=== PATIENT | male | born 1940 | race Caucasian/White ===

== ENCOUNTER 2019-03-04 00:07 | Inpatient (IN) | payer MEDICARE ==
[~2019-03-04] VITALS: Ht 175.3 cm; Wt 79.4 kg
[~2019-03-04 00:07] MED LIST: ATEN50 PO; ATOR40TA PO; B-1100 MG PO; CHOL10002 PO; CYAN1000 PO; Cipro500 MG PO; DICL75ER PO; DOC250 PO; DOCU100 PO; FINA5 PO; FISH1000 PO; FURO40 PO; HYDACE5 PO; LACT10SY PO; LAVAP17G PO; MIRT15 PO; MORP15ER PO; MORP30 PO; MULVITMIND PO; NORT75 PO; Norco 5-325 Ta1 EACH PO; OXYC5 PO; POLY17UD PO; PYRI100 PO; SODPHOSO PR; SULFAMETHOXAZOLE; TAMS.4ER PO; [UNRECOGNIZED DRUG - REMARK]
[2019-03-04 01:03] LABS: EOSINOPHILS ABSOLUTE AUTO 0.04 K/mm3 (0.00-0.68); EOSINOPHILS PERCENT AUTO 0 % (0-6); Hemoglobin 8.7 g/dL (13.5-17.5); Mean Platelet Volume 10.5 fL (9.1-12.4); Platelet Count 175 K/mm3 (150-400)
[2019-03-04 01:04] LABS: BASOPHILS ABSOLUTE AUTO 0.04 K/mm3 (0.00-0.23); BASOPHILS PERCENT AUTO 0 % (0-2); Hematocrit 30.4 % (37.0-53.0); IMMATURE GRAN PERCENT AUTO 0 % (0-1); LYMPHOCYTES ABSOLUTE AUTO 184.69 K/mm3 (0.84-5.20); LYMPHOCYTES PERCENT AUTO 98 % (21-46); MONOCYTES ABSOLUTE AUTO 0.37 K/mm3 (0.16-1.47); MONOCYTES PERCENT AUTO 0 % (4-13); Mean Corpuscular HGB 30.1 pg (26.0-34.0); Mean Corpuscular HGB Conc 28.6 g/dL (31.5-36.5); Mean Corpuscular Volume 105 fL (80-100); NEUTROPHILS ABSOLUTE AUTO 3.48 K/mm3 (1.96-9.15); NEUTROPHILS PERCENT AUTO 2 % (41-73); Red Blood Cell Count 2.89 M/mm3 (4.30-5.90)
[2019-03-04 01:06] LABS: White Blood Cell Count 188.82 K/mm3 (4.00-11.30)
[2019-03-04 01:23] LABS: Alanine Aminotransfer (ALT/SGP 92 U/L (12-78); Albumin, Blood 1.8 g/dL (3.4-5.0); Albumin/Globulin Ratio 0.4 (0.8-1.8); Alk Phos 157 U/L (50-136); Anion Gap 6 mmol/L (6-16); Aspartate Aminotrans (AST/SGOT 63 U/L (12-37); Bilirubin, Total 0.6 mg/dL (0.1-1.0); Blood Urea Nitrogen 32 mg/dL (8-24); Bun/Creatinine Ratio 34.7 (12.0-20.0); CO2, Blood 27 mmol/L (21-32); Calcium, Blood 7.1 mg/dL (8.5-10.1); Chloride, Blood 108 mmol/L (98-108); Creatinine, Blood 0.92 mg/dL (0.60-1.20); Glomerular Filtration Rate >60 (60-); Glucose, Blood 95 mg/dL (70-99); Potassium, Blood 5.4 mmol/L (3.5-5.5); Sodium, Blood 141 mmol/L (136-145); Total Protein, Blood 5.8 g/dL (6.4-8.2); Troponin I 0.456 ng/mL (0.000-0.040)
[2019-03-04] MEDS ORDERED: AMLO5 PO (04:12)
[2019-03-04] MEDS ORDERED: ONDA4 PO (05:36)
[2019-03-04] MEDS ORDERED: MAGOXI400 PO (05:36)
[2019-03-04] MEDS ORDERED: Zantac150 MG PO (05:37)
[2019-03-04] MEDS ORDERED: SALS750 PO (05:38)
[2019-03-04] MEDS ORDERED: Depo-Testos200 MG/ML IM (05:39)
--- NOTE | 2019-03-04 06:28 | NUR ---
SHIFT SUMMARY PATIENT ARRIVED TO ROOM VIA STRETCHER. PATIENT AWAKE AND TALKING WITH STAFF. PT'S FAMILY MEMBER AT BEDSIDE. PT COMPLAINS OF PAIN ALL OVER, ESPECIALLY IN HIS NECK. PATIENT IS VERY IRRITABLE AND CURSING TO STAFF. ANTIBIOTICS RUNNING. PATIENT ON 2L NC. PT FELL ASLEEP VERY QUICKLY AND SO DID NEPHEW. PT IS ON TELE. VITAL SIGNS STABLE
[2019-03-04 09:47] LABS: Hemoglobin 8.5 g/dL (13.5-17.5); Mean Platelet Volume 10.2 fL (9.1-12.4); Platelet Count 168 K/mm3 (150-400)
[2019-03-04 09:51] LABS: Hematocrit 31.1 % (37.0-53.0); Mean Corpuscular HGB 29.6 pg (26.0-34.0); Mean Corpuscular HGB Conc 27.3 g/dL (31.5-36.5); Mean Corpuscular Volume 108 fL (80-100); Red Blood Cell Count 2.87 M/mm3 (4.30-5.90)
[2019-03-04 10:07] LABS: Troponin I 0.375 ng/mL (0.000-0.040)
[2019-03-04 10:16] LABS: White Blood Cell Count 182.85 K/mm3 (4.00-11.30)
[2019-03-04 10:55] LABS: Alanine Aminotransfer (ALT/SGP 80 U/L (12-78); Albumin, Blood 1.6 g/dL (3.4-5.0); Albumin/Globulin Ratio 0.4 (0.8-1.8); Alk Phos 150 U/L (50-136); Anion Gap 10 mmol/L (6-16); Aspartate Aminotrans (AST/SGOT 52 U/L (12-37); Bilirubin, Total 0.8 mg/dL (0.1-1.0); Blood Urea Nitrogen 26 mg/dL (8-24); Bun/Creatinine Ratio 30.3 (12.0-20.0); CO2, Blood 23 mmol/L (21-32); Calcium, Blood 6.3 mg/dL (8.5-10.1); Chloride, Blood 105 mmol/L (98-108); Creatinine, Blood 0.86 mg/dL (0.60-1.20); Globulin, Blood 4.1 g/dL (2.2-4.0); Glomerular Filtration Rate >60 (60-); Glucose, Blood 133 mg/dL (70-99); Potassium, Blood 5.2 mmol/L (3.5-5.5); Sodium, Blood 138 mmol/L (136-145); Total Protein, Blood 5.7 g/dL (6.4-8.2)
[2019-03-04 11:03] LABS: Source, Urine Clean Catch
--- NOTE | 2019-03-04 11:28 | NUR ---
Echocardiogram completed.
[2019-03-04 11:32] LABS: Adenovirus Not Detected (NOT DETECT); Bordetella pertussis Not Detected (NOT DETECT); Chlamydophila pneumoniae Not Detected (NOT DETECT); Coronavirus 229E Not Detected (NOT DETECT); Coronavirus HKU1 Not Detected (NOT DETECT); Coronavirus NL63 Not Detected (NOT DETECT); Coronavirus OC43 Not Detected (NOT DETECT); Human Metapneumovirus Not Detected (NOT DETECT); Human Rhinovirus/Enterovirus Not Detected (NOT DETECT); Influenza A Not Detected (NOT DETECT); Influenza A/2009-H1 Not Detected (NOT DETECT); Influenza A/H1 Not Detected (NOT DETECT); Influenza A/H3 Not Detected (NOT DETECT); Influenza B Not Detected (NOT DETECT); Mycoplasma pneumoniae Not Detected (NOT DETECT); Parainfluenza Virus 1 Not Detected (NOT DETECT); Parainfluenza Virus 2 Not Detected (NOT DETECT); Parainfluenza Virus 3 Not Detected (NOT DETECT); Parainfluenza Virus 4 Not Detected (NOT DETECT); Respiratory Syncytial Virus Not Detected (NOT DETECT)
[2019-03-04 11:35] LABS: Bilirubin, Urine Neg (Neg); Blood, Urine Neg (Neg); Glucose Qualitative, Urine Neg (Neg); Ketones, Urine Neg (Neg); Leukocyte Esterase, Urine Neg (Neg); Nitrite, Urine Neg (Neg); Protein, Urine Neg (Neg); Specific Gravity, Urine 1.005 (1.003-1.022); Urobilinogen, Urine NORM (Normal)
[2019-03-04 13:21] LABS: Appearance, Urine Clear (Clear); Color, Urine Yellow (P-Yellow)
[2019-03-04 18:46] LABS: Troponin I 0.385 ng/mL (0.000-0.040)
--- NOTE | 2019-03-04 19:33 | NUR ---
SHIFT SUMMARY: NO ACUTE CHANGES TO REPORT THIS SHIFT. PT A&O; MILD CONFUSION-RESOLVING; COOPERATIVE WITH CARE. 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 IV ABX CONTINUING. REPORT GIVEN TO ONCOMING RN.
[2019-03-05 05:08] LABS: Test Name FLOW BLD
--- NOTE | 2019-03-05 07:35 | NUR ---
03/05/19 0600 VERY HARD OF HEARING. IRRITABLE WITH STAFF HE FEELS "URINE IS NOT EMPTIED QUICK ENOUGH". SECOND URINAL GIVEN TO HELP. VITALS STABLE. NEPHEW STAYED OVER NIGHT IN ROOM. FAMILY TO BRING IN HIS MED THAT PHARMACY DOES NOT CARRY. MEDICATED ONCE FOR PAIN AND SLEPT WELL AFTERWARDS. SOB WITH ANY EXERTION. O2 AT 3 LPM VIA N/C.
--- NOTE | 2019-03-05 11:33 | NUR ---
NOTIFIED DR. ELISE PT C/O NASAL DECONGESTION. DR. ELISE SAID TO ORDER SALINE NASAL SPRAY. NO OTHER NEW ORDERS AT THIS TIME.
--- NOTE | 2019-03-05 19:34 | NUR ---
SHIFT SUMMARY- PT AXO X3. [place]. PT C/O GENERALIZED PAIN THIS AFTERNOON. MEDS GIVEN PER EMAR. PT REPORTS NO BM SINCE MONDAY. MEDS GIVEN PER EMAR. PT HAD 2 LARGE SOFT BM TODAY. PT DENIES N/V. PT REPORTS SOB. DYSPNEA UPON EXERTION. 97% ON 3L O2 NC. 1 ASSIST STAND PIVOT TRANSFER TO BSC/CHAIR. NO OTHER SIGNIFICANT CHANGES THIS SHIFT.
[2019-03-06 06:09] LABS: IMMUNOGLOBULIN A, QN, SERUM 74 mg/dL (61-437); IMMUNOGLOBULIN G, QN, SERUM 1547 mg/dL (700-1600); IMMUNOGLOBULIN M, QN, SERUM 49 mg/dL (15-143)
[2019-03-06 06:49] LABS: EOSINOPHILS ABSOLUTE AUTO 0.08 K/mm3 (0.00-0.68); EOSINOPHILS PERCENT AUTO 0 % (0-6); Hemoglobin 7.5 g/dL (13.5-17.5); Mean Platelet Volume 10.5 fL (9.1-12.4); NRBC ABSOLUTE 0.02 K/mm3 (0.00-0.02); Platelet Count 189 K/mm3 (150-400)
[2019-03-06 06:51] LABS: Hematocrit 27.5 % (37.0-53.0); Mean Corpuscular HGB 29.9 pg (26.0-34.0); Mean Corpuscular HGB Conc 27.3 g/dL (31.5-36.5); Mean Corpuscular Volume 110 fL (80-100); Red Blood Cell Count 2.51 M/mm3 (4.30-5.90)
[2019-03-06 06:52] LABS: BASOPHILS ABSOLUTE AUTO 0.04 K/mm3 (0.00-0.23); BASOPHILS PERCENT AUTO 0 % (0-2); IMMATURE GRAN PERCENT AUTO 0 % (0-1); LYMPHOCYTES ABSOLUTE AUTO 163.58 K/mm3 (0.84-5.20); LYMPHOCYTES PERCENT AUTO 98 % (21-46); MONOCYTES ABSOLUTE AUTO 0.33 K/mm3 (0.16-1.47); MONOCYTES PERCENT AUTO 0 % (4-13); NEUTROPHILS ABSOLUTE AUTO 2.39 K/mm3 (1.96-9.15); NEUTROPHILS PERCENT AUTO 2 % (41-73)
[2019-03-06 06:58] LABS: White Blood Cell Count 166.52 K/mm3 (4.00-11.30)
[2019-03-06 07:10] LABS: Anion Gap 7 mmol/L (6-16); Blood Urea Nitrogen 12 mg/dL (8-24); Bun/Creatinine Ratio 11.9 (12.0-20.0); CO2, Blood 23 mmol/L (21-32); Calcium, Blood 6.7 mg/dL (8.5-10.1); Chloride, Blood 108 mmol/L (98-108); Creatinine, Blood 1.01 mg/dL (0.60-1.20); Glomerular Filtration Rate >60 (60-); Glucose, Blood 88 mg/dL (70-99); Potassium, Blood 4.7 mmol/L (3.5-5.5); Sodium, Blood 138 mmol/L (136-145)
--- NOTE | 2019-03-06 08:03 | NUR ---
03/06/19 0600 VITALS STABLE. MEDICATED SEVERAL TIMES FOR LOWER EXTREMITY DISCOMFORT. UNEVENTFUL NIGHT.
--- NOTE | 2019-03-06 14:15 | NUR ---
Initial Visit: Palliative Care Consult for Advanced Care Planning and Symptom Management. Pt is A&O and reports a tolerable 3/10 pain in his feet. He reports current regimen is managing his pain. He denies anxiety and appears moderately dyspneic as our conversation progresses. He reports his dyspnea worsen when speaking for too long. Engaged in therapeutic conversation regarding Advanced Care Planning. Pt reports living at home and his newphew lives with him. His daughter lives in the same neighborhood. Pt is of [employer] and reports his last year. Pt is a and this RN thanked him for his services. Pt reports his nephew is supportive of his care needs. Pt also reports having a caregiver come to his home for 2 to 3 hours 3 to 4 days a week. Pt's daughter is also supportive of care needs. 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 Suggested to Pt to write down questions for oncologist to address during his visit. Also suggested for Pt to make family and caregivers aware of possible need for extra support when going through treatment. Pt expresses appreciation of visit and this RN ended visit due to increased dyspnea. He reports the longer he talks the more dyspneic he becomes. Spoke with Pt's bedside nurse Rica and she reports no concerns at this time. Palliative Care will remain available
--- NOTE | 2019-03-06 14:42 | NUR ---
Late Entry from Initial Visit. During visit discussion was made regarding high risk readmission program. Pt expresses interest in program.
--- NOTE | 2019-03-06 17:34 | NUR ---
SHIFT SUMMARY PT UP TO COMMODE THIS AFTERNOON WITH 1 PERSON ASSIST. WAS IN PAIN THIS MORNING AND GOT HOME PAIN MEDS ORDERED AND STATES HIS PAIN IS MORE MANAGEABLE THIS AFTERNOON. FAMILY AT BEDSIDE DURING MIDDLE OF DAY. WILL REPORT TO ONCOMING SHIFT.
--- NOTE | 2019-03-07 06:01 | NUR ---
SHIFT SUMMARY PATIENT IS ALERT AND ORIENTED. USES CALL LIGHT APPROPRIATELY. USES URINAL. PATIENT DID HAVE SOME PAIN AND WAS MEDICATED ORDERED. PT SLEPT WELL THROUGHOUT THE NIGHT. VITALS STABLE. NO NEW CHANGES.
--- NOTE | 2019-03-07 10:00 | NUR ---
PT REPORTED AT SHIFT CHANGE ABOUT L FA HURTING IN A STABBING FASHION AND IT SUDDENLY GOT WORSE THIS MORNING. SITE WITH SLIGHT SWELLINNG BUT NO REDNESS OR WARMTH NOTED AT SITE. MEDICATED AND ICE APPLIED. AT THIS TIME PT ABLE TO USE L ARM BUT FAVORS IT. STATES IT FEELS A LITTLE BETTER THAN EARLIER THIS MORNIING.
[2019-03-07] MEDS ORDERED: CVS DISPOSABLE399 ML PR (12:20)
[2019-03-07] MEDS ORDERED: CHLO2 PO (12:35)
[2019-03-07 13:13] LABS: Result SEE LABOUT RESULTS
--- NOTE | 2019-03-07 13:30 | NUR ---
DISCHARGE INSTRUCTIONS COMPLETED AND DISCUSSED WITH PT EXPRESSING UNDERSTANDING. NEPHEW AT BEDSIDE WELL LISTENING TO INSTRUCTIONS. [facility] TO [facility]IA W/C.
== END 2019-03-07 13:25 | disposition home or self-care (01) | DRG 840 ==
LOC: ER 00:07 → MEDS 04:47 → ENPENDDIS 03-07 11:55 → MEDS 03-07 13:25
PROVIDERS: Emergency Medicine; Hospitalist; Internal Medicine Hematology & Oncology; ADMIT Internal Medicine
DX: C91.90 Lymphoid leukemia, unspecified not having achieved remission (principal); J96.01 Acute respiratory failure with hypoxia; I21.A1 Myocardial infarction type 2; R65.10 Systemic inflammatory response syndrome (SIRS) of non-infectious origin without acute organ dysfunction; E86.0 Dehydration; Z99.81 Dependence on supplemental oxygen; K21.9 Gastro-esophageal reflux disease without esophagitis; D69.6 Thrombocytopenia, unspecified; Z87.01 Personal history of pneumonia (recurrent); Z66 Do not resuscitate; D63.0 Anemia in neoplastic disease; I10 Essential (primary) hypertension; Z51.5 Encounter for palliative care; K59.00 Constipation, unspecified; G89.3 Neoplasm related pain (acute) (chronic)
CPT/HCPCS: 36415; 71260; 80048; 80053; 81003; 82550; 82784; 83605; 83880; 84145; 84484; 85025; 85027; 87486; 87581; 87633; 87798; 88184; 88185; 93005; 93010; 93306; 94640; 94760; 94770; 96365-59; 99285-25; J1650; J1956; J2543; J3010; J7030; J7050; Q9967

== ENCOUNTER → 2019-04-01 | Outpatient (CLI) | payer MEDICARE ==
[~2019-04-01] MED LIST changes: +AMLO5 PO; +CEFP200 PO; +CHLO2 PO; +CVS DISPOSABLE399 ML PR; +Depo-Testos200 MG/ML IM; +MAGOXI400 PO; +ONDA4 PO; +POTA20PAC PO; +SALS750 PO; +Zantac150 MG PO
[2019-04-05 11:08] LABS: CELLS ANALYZED Comment: (.); CELLS COUNTED Comment: (.); DIRECTOR REVIEW: Comment: (.); FISH RESULT Comment: (.); INTERPRETATION Comment: (.); SPECIMEN TYPE Comment: (.)
== END | disposition home or self-care (01) ==
LOC: LAB SHORT 09:54 → LAB 09:54
PROVIDERS: Internal Medicine Hematology & Oncology
DX: C91.10 Chronic lymphocytic leukemia of B-cell type not having achieved remission (principal)
CPT/HCPCS: 81263; 82232; 88184; 88185; 88271; 88275

== ENCOUNTER 2019-06-13 17:09 | Emergency (ER) | payer OTHER, MEDICARE ==
[~2019-06-13] VITALS: Ht 177.8 cm; Wt 77.1 kg
[~2019-06-13 17:09] MED LIST changes: -CEFP200 PO; -POTA20PAC PO
[2019-06-13 17:25] LABS: BASOPHILS ABSOLUTE AUTO 0.01 K/mm3 (0.00-0.23); BASOPHILS PERCENT AUTO 0 % (0-2); EOSINOPHILS ABSOLUTE AUTO 0.01 K/mm3 (0.00-0.68); EOSINOPHILS PERCENT AUTO 0 % (0-6); Hematocrit 35.9 % (37.0-53.0); Hemoglobin 11.9 g/dL (13.5-17.5); IMMATURE GRAN ABSOLUTE AUTO 0.05 K/mm3 (0.00-0.10); IMMATURE GRAN PERCENT AUTO 2 % (0-1); LYMPHOCYTES ABSOLUTE AUTO 0.64 K/mm3 (0.84-5.20); LYMPHOCYTES PERCENT AUTO 19 % (21-46); MONOCYTES ABSOLUTE AUTO 0.33 K/mm3 (0.16-1.47); MONOCYTES PERCENT AUTO 10 % (4-13); Mean Corpuscular HGB 32.9 pg (26.0-34.0); Mean Corpuscular HGB Conc 33.1 g/dL (31.5-36.5); Mean Corpuscular Volume 99 fL (80-100); Mean Platelet Volume 9.7 fL (9.1-12.4); NEUTROPHILS ABSOLUTE AUTO 2.29 K/mm3 (1.96-9.15); NEUTROPHILS PERCENT AUTO 69 % (41-73); Platelet Count 123 K/mm3 (150-400); RDW Coefficient Variation 14.6 % (11.7-14.2); RDW Standard Deviation 53.6 fL (35.1-46.3); Red Blood Cell Count 3.62 M/mm3 (4.30-5.90); White Blood Cell Count 3.33 K/mm3 (4.00-11.30)
[2019-06-13 17:39] LABS: International Normalized Ratio 0.99; Prothrombin Time Results 10.5 Sec (9.7-11.5)
[2019-06-13 17:56] LABS: Ethanol (Alcohol), Blood, Med 242 mg/dL
[2019-06-13 18:00] LABS: Alanine Aminotransfer (ALT/SGP 17 U/L (12-78); Albumin, Blood 3.3 g/dL (3.4-5.0); Albumin/Globulin Ratio 1.1 (0.8-1.8); Alk Phos 70 U/L (50-136); Anion Gap 8 mmol/L (6-16); Aspartate Aminotrans (AST/SGOT 19 U/L (12-37); Bilirubin, Total 0.4 mg/dL (0.1-1.0); Blood Urea Nitrogen 10 mg/dL (8-24); Bun/Creatinine Ratio 10.1 (12.0-20.0); CO2, Blood 26 mmol/L (21-32); Chloride, Blood 109 mmol/L (98-108); Creatinine, Blood 0.99 mg/dL (0.60-1.20); Globulin, Blood 2.9 g/dL (2.2-4.0); Glomerular Filtration Rate >60 (60-); Glucose, Blood 104 mg/dL (70-99); Potassium, Blood 2.9 mmol/L (3.5-5.5); Sodium, Blood 143 mmol/L (136-145); Total Protein, Blood 6.2 g/dL (6.4-8.2)
[2019-06-13] MEDS ORDERED: POTA20PAC PO (18:41)
[2019-06-13 18:42] LABS: U Amphetamine Screen Not Detected; U Barbituate Screen Not Detected; U Benzodiazapine Screen Not Detected; U Buprenorphine Screen Not Detected; U Cannabinoids Screen Not Detected; U Cocaine Screen Not Detected; U Methadone Screen Not Detected; U Methamphetamine Screen Not Detected; U Opiates Screen Not Detected; U Oxycodone Screen Not Detected; U Phencyclidine Screen Not Detected; U Propoxyphene Screen Not Detected
== END 2019-06-13 19:01 | disposition home or self-care (01) ==
LOC: ER 17:09
PROVIDERS: Emergency Medicine
DX: F10.129 Alcohol abuse with intoxication, unspecified (principal); R41.82 Altered mental status, unspecified; Y90.8 Blood alcohol level of 240 mg/100 ml or more; E87.6 Hypokalemia; D69.6 Thrombocytopenia, unspecified; K21.9 Gastro-esophageal reflux disease without esophagitis; C91.10 Chronic lymphocytic leukemia of B-cell type not having achieved remission; Z87.01 Personal history of pneumonia (recurrent); Z79.899 Other long term (current) drug therapy
CPT/HCPCS: 70450; 71046; 80053; 82947; 85025; 85610; 93005; 93010; 96374; 99285-25; G0480; J2310

== ENCOUNTER 2019-06-16 08:37 | Emergency (ER) | payer OTHER, MEDICARE ==
[~2019-06-16] VITALS: Ht 175.3 cm; Wt 79.4 kg
[~2019-06-16 08:37] MED LIST changes: +POTA20PAC PO
[2019-06-16 09:14] LABS: Source, Urine Catheter
[2019-06-16 09:17] LABS: Appearance, Urine Clear (Clear); Bilirubin, Urine Neg (Neg); Blood, Urine 5+ (Neg); Color, Urine Yellow (P-Yellow); Glucose Qualitative, Urine Neg (Neg); Ketones, Urine Neg (Neg); Leukocyte Esterase, Urine 3+ (Neg); Nitrite, Urine Neg (Neg); Protein, Urine Neg (Neg); Specific Gravity, Urine 1.005 (1.003-1.022); Urobilinogen, Urine NORM (Normal); pH, Urine 6.5 (5.0-8.0)
[2019-06-16 09:30] LABS: White Blood Cells, Urine 50-100 /hpf (0-5)
[2019-06-16 09:31] LABS: Bacteria Many /hpf; Squamous Epithelial Cells Rare /hpf (Few)
[2019-06-16] MEDS ORDERED: CEFP200 PO (10:07)
== END 2019-06-16 10:38 | disposition home or self-care (01) ==
LOC: ER 08:37
PROVIDERS: Physician Assistant
DX: N39.0 Urinary tract infection, site not specified (principal); Z79.899 Other long term (current) drug therapy
CPT/HCPCS: 51702; 51798; 81001; 87077; 87086; 87186; 99283-25; A9270-GY

== ENCOUNTER 2019-06-30 22:40 | Emergency (ER) | payer MEDICARE ==
[~2019-06-30] VITALS: Ht 175.3 cm; Wt 82.5 kg
[~2019-06-30 22:40] MED LIST changes: +CEFP200 PO
== END 2019-07-01 00:39 | disposition home or self-care (01) ==
LOC: ER 22:40
DX: T83.031A Leakage of indwelling urethral catheter, initial encounter (principal); M19.90 Unspecified osteoarthritis, unspecified site; Z79.899 Other long term (current) drug therapy; Z79.1 Long term (current) use of non-steroidal anti-inflammatories (NSAID)
CPT/HCPCS: 99282

== ENCOUNTER 2019-12-04 07:03 | Emergency (ER) | payer OTHER, MEDICARE ==
[~2019-12-04] VITALS: Ht 175.3 cm; Wt 82.5 kg
[2019-12-04 07:46] LABS: Source, Urine Clean Catch
[2019-12-04 07:53] LABS: Bilirubin, Urine Neg (Neg); Blood, Urine 2+ (Neg); Glucose Qualitative, Urine Neg (Neg); Ketones, Urine Neg (Neg); Leukocyte Esterase, Urine 2+ (Neg); Nitrite, Urine Neg (Neg); Protein, Urine Neg (Neg); Urobilinogen, Urine NORM (Normal); pH, Urine 6.5 (5.0-8.0)
[2019-12-04 08:00] LABS: Appearance, Urine Hazy (Clear); Color, Urine Yellow (P-Yellow); White Blood Cells, Urine 25-50 /hpf (0-5)
[2019-12-04 08:01] LABS: Bacteria Many /hpf; Squamous Epithelial Cells Rare /hpf (Few); Transitional Epithelial Cells Rare /hpf (0-Rare)
[2019-12-04] MEDS ORDERED: Bactrim Ds Tab1 EACH PO (09:01)
[2019-12-04] MEDS ORDERED: CEFP200 PO (09:01)
== END 2019-12-04 09:16 | disposition home or self-care (01) ==
LOC: ER 07:03
PROVIDERS: Emergency Medicine
DX: L03.314 Cellulitis of groin (principal); N30.00 Acute cystitis without hematuria; Z79.899 Other long term (current) drug therapy
CPT/HCPCS: 81001; 87077; 87086; 87186; 99283; A9270-GY

== ENCOUNTER 2020-01-25 14:31 | Emergency (ER) | payer OTHER, MEDICARE ==
[~2020-01-25] VITALS: Ht 175.3 cm; Wt 82.5 kg
[~2020-01-25 14:31] MED LIST changes: +Bactrim Ds Tab1 EACH PO
[2020-01-25 16:16] LABS: Source, Urine Voided
[2020-01-25 16:20] LABS: Bilirubin, Urine Neg (Neg); Blood, Urine 3+ (Neg); Glucose Qualitative, Urine Neg (Neg); Ketones, Urine Neg (Neg); Leukocyte Esterase, Urine 2+ (Neg); Nitrite, Urine Neg (Neg); Protein, Urine Neg (Neg); Specific Gravity, Urine 1.015 (1.003-1.022); Urobilinogen, Urine NORM (Normal); pH, Urine 6.5 (5.0-8.0)
[2020-01-25 16:39] LABS: Appearance, Urine Clear (Clear); Color, Urine Yellow (P-Yellow)
[2020-01-25 16:41] LABS: Bacteria Rare /hpf; Calcium Oxalate Crystals Rare /hpf; Squamous Epithelial Cells Few /hpf (Few)
[2020-01-25] MEDS ORDERED: CEFP200 PO (17:42)
== END 2020-01-25 17:58 | disposition home or self-care (01) ==
LOC: ER 14:31
PROVIDERS: Emergency Medicine
DX: N48.21 Abscess of corpus cavernosum and penis (principal); N39.0 Urinary tract infection, site not specified; K21.9 Gastro-esophageal reflux disease without esophagitis; Z79.899 Other long term (current) drug therapy
CPT/HCPCS: 10160; 76857; 81001; 87070; 87075; 87086; 87205; 99283-25; A9270-GY

== ENCOUNTER 2025-01-05 20:33 | Emergency (ER) | payer MEDICARE ==
[~2025-01-05] VITALS: Ht 175.3 cm; Wt 86.2 kg
[~2025-01-05 20:33] MED LIST changes: +AZIT250 PO; +CALCIUM CARBON500 M1 PO; +CEPH500 PO; +VISBIOME 112.51 EACH PO; +XARELTO15 MG PO
[2025-01-05 21:28] LABS: Hematocrit 32.4 % (37.0-53.0); Hemoglobin 9.9 g/dL (13.5-17.5); Mean Corpuscular HGB 30.4 pg (26.0-34.0); Mean Corpuscular HGB Conc 30.6 g/dL (31.5-36.5); Mean Corpuscular Volume 99 fL (80-100); Mean Platelet Volume 11.5 fL (9.1-12.4); Platelet Count 166 K/mm3 (150-400); RDW Coefficient Variation 18.4 % (11.7-14.2); RDW Standard Deviation 66.9 fL (35.1-46.3); Red Blood Cell Count 3.26 M/mm3 (4.30-5.90); White Blood Cell Count 26.27 K/mm3 (4.00-11.30)
[2025-01-05 21:50] LABS: Albumin, Blood 3.3 g/dL (3.4-5.0); Bilirubin, Total 0.4 mg/dL (0.1-1.0); Bun/Creatinine Ratio 10.6 (12.0-20.0); Creatinine, Blood 1.04 mg/dL (0.60-1.20); Globulin, Blood 3.2 g/dL (2.2-4.0); Potassium, Blood 4.1 mmol/L (3.5-5.5); Total Protein, Blood 6.5 g/dL (6.4-8.2)
[2025-01-05] MEDS ORDERED: FentaNYL Citrate 50 MCG/ML 2 ML Injection IV ONE (21:55)
[2025-01-05 22:12] LABS: BASOPHILS PERCENT MAN 0 % (0-2); EOSINOPHILS ABSOLUTE MAN 0.26 K/mm3 (0.00-0.68); EOSINOPHILS PERCENT MAN 1 % (0-6); LYMPHOCYTES PERCENT MAN 91 % (21-46); MONOCYTES PERCENT MAN 0 % (4-13); SEG NEUTROPHILS PERCENT MAN 8 % (41-73); TOTAL CELLS COUNTED 100
[2025-01-05 22:59] LABS: International Normalized Ratio 0.99; Prothrombin Time Results 10.6 Sec (9.7-11.5)
[2025-01-05 23:01] LABS: CORONAVIRUS COVID-19 AG Negative (NEGATIVE); INFLUENZA A AG Negative (NEGATIVE); INFLUENZA B AG Negative (NEGATIVE)
[2025-01-06] VITALS: BP 134/70
[2025-01-06] MEDS ORDERED: FentaNYL Citrate 50 MCG/ML 2 ML Injection IV ONE (00:20)
== END 2025-01-06 00:55 | disposition other institution (70) ==
LOC: ER 20:33
PROVIDERS: Student in an Organized Health Care Education/Training Program
DX: Z90.79 Acquired absence of other genital organ(s) (principal); Z59.89 Other problems related to housing and economic circumstances; J44.9 Chronic obstructive pulmonary disease, unspecified; K21.9 Gastro-esophageal reflux disease without esophagitis; I10 Essential (primary) hypertension; Z79.891 Long term (current) use of opiate analgesic; Z79.83 Long term (current) use of bisphosphonates; Z79.899 Other long term (current) drug therapy; Z79.890 Hormone replacement therapy; Z79.2 Long term (current) use of antibiotics
CPT/HCPCS: 80053; 85025; 85610; 85730; 86850; 86900; 86901; 87428-QW; 96374; 96376; 99284-25; J3010

== ENCOUNTER 2025-02-11 17:39 | Emergency (ER) | payer MEDICARE ==
[~2025-02-11] VITALS: Ht 175.3 cm; Wt 87.1 kg
[2025-02-11 18:09] LABS: Hematocrit 27.2 % (37.0-53.0); Hemoglobin 7.9 g/dL (13.5-17.5); Mean Corpuscular HGB 27.1 pg (26.0-34.0); Mean Corpuscular Volume 93 fL (80-100); Mean Platelet Volume 11.3 fL (9.1-12.4); Platelet Count 181 K/mm3 (150-400); RDW Coefficient Variation 17.7 % (11.7-14.2); RDW Standard Deviation 60.9 fL (35.1-46.3); Red Blood Cell Count 2.92 M/mm3 (4.30-5.90); White Blood Cell Count 12.95 K/mm3 (4.00-11.30)
[2025-02-11] MEDS ORDERED: ASCORBIC ACID500 M1 PO (18:30)
[2025-02-11] MEDS ORDERED: B-12 COMPL1000 MCG/2 IM (18:31)
[2025-02-11 18:32] LABS: Albumin, Blood 3.6 g/dL (3.4-5.0); Albumin/Globulin Ratio 1.4 (0.8-1.8); Bilirubin, Total 0.9 mg/dL (0.1-1.0); Bun/Creatinine Ratio 10.1 (12.0-20.0); Calcium, Blood 7.3 mg/dL (8.5-10.1); Creatinine, Blood 0.89 mg/dL (0.60-1.20); Globulin, Blood 2.6 g/dL (2.2-4.0); Total Protein, Blood 6.2 g/dL (6.4-8.2)
[2025-02-11] MEDS ORDERED: Naltrexone HCl50 MG PO (18:34)
[2025-02-11] MEDS ORDERED: CEFP200 PO (18:35)
[2025-02-11] MEDS ORDERED: FERSU300 PO (18:35)
[2025-02-11] MEDS ORDERED: ESTRADIOL1 EAC2 TOP (18:40)
[2025-02-11] MEDS ORDERED: TRAZ50 PO (18:41)
[2025-02-11] MEDS ORDERED: LIDO700A20 TOP (18:42)
[2025-02-11] MEDS ORDERED: Prozac20 MG PO (18:43)
[2025-02-11] MEDS ORDERED: Amlodipine Bes2.5 MG PO (18:45)
[2025-02-11 19:58] LABS: BASOPHILS PERCENT MAN 0 % (0-2); EOSINOPHILS PERCENT MAN 0 % (0-6); LYMPHOCYTES PERCENT MAN 85 % (21-46); MONOCYTES ABSOLUTE MAN 0.12 K/mm3 (0.16-1.47); MONOCYTES PERCENT MAN 1 % (4-13); NEUTROPHILS ABSOLUTE MAN 1.81 K/mm3 (1.96-9.15); SEG NEUTROPHILS PERCENT MAN 14 % (41-73); TOTAL CELLS COUNTED 100
[2025-02-11] MEDS ORDERED: Acetaminophen 325 MG TABLET PO ONE (21:20)
[2025-02-11 22:27] VITALS: BP 139/73
== END 2025-02-11 22:26 | disposition home or self-care (01) ==
LOC: ER 17:39
PROVIDERS: Emergency Medicine
DX: R07.9 Chest pain, unspecified (principal); D64.9 Anemia, unspecified
CPT/HCPCS: 71046; 71260; 80053; 83690; 83880; 84484; 85025; 85379; 93005; 93010; 99285-25; A9270; Q9967